=== PATIENT | male | born 1980 | race African-American/Black ===

== ENCOUNTER 2017-08-27 14:09 | Emergency (ER) | payer MEDICAID, OTHER ==
[~2017-08-27] VITALS: Ht 188 cm; Wt 100.0 kg
[2017-08-27 14:12] VITALS: BP 137/83
== END 2017-08-27 15:43 | disposition left against medical advice (07) ==
LOC: ER 14:09
DX: S81.812A Laceration without foreign body, left lower leg, initial encounter (principal); S50.811A Abrasion of right forearm, initial encounter; V86.96XA Unspecified occupant of dirt bike or motor/cross bike injured in nontraffic accident, initial encounter; Y93.89 Activity, other specified; Y92.89 Other specified places as the place of occurrence of the external cause; Y99.8 Other external cause status
CPT/HCPCS: 73030; 99284